=== PATIENT | female | born 1990 | race Hispanic/Latino ===

== ENCOUNTER 2018-04-16 14:43 | Emergency (ER) | payer BC ==
[~2018-04-16] VITALS: Ht 149.9 cm; Wt 84.8 kg
[2018-04-16 15:23] LABS: BASOPHILS % 0.3 % (0.0-1.0); EOSINOPHILS # (AUTO) 0.1 (0.0-0.4); EOSINOPHILS % 0.7 % (0.0-6.0); HEMATOCRIT 37.9 % (34.2-44.1); HEMOGLOBIN 12.7 g/dL (12.0-16.0); LYMPHOCYTES # (AUTO) 3.1 (1.0-3.2); LYMPHOCYTES % 26.7 % (18.0-39.1); MEAN CORPUSCULAR HEMOGLOBIN 28.8 pg (28-32); MEAN CORPUSCULAR HGB CONC 33.5 g/dL (31-35); MEAN CORPUSCULAR VOLUME 85.9 fL (81-99); MONOCYTES # (AUTO) 0.4 (0.2-0.8); MONOCYTES % 3.2 % (4.4-11.3); NEUTROPHILS # (AUTO) 7.9 (2.1-6.9); NEUTROPHILS % 68.8 % (38.7-80.0); PLATELET COUNT 370 x10e3/uL (140-360); RED BLOOD COUNT 4.41 x10e6/uL (3.6-5.1); RED CELL DISTRIBUTION WIDTH 12.9 % (11.7-14.4)
[2018-04-16 15:32] LABS: BILIRUBIN,URINE NEGATIVE (NEGATIVE); CLARITY,URINE CLOUDY (CLEAR); COLOR,URINE RED (YELLOW); KETONES,URINE NEGATIVE (NEGATIVE); LEUKOCYTE ESTERASE ,URINE NEGATIVE (NEGATIVE); NITRITE,URINE NEGATIVE (NEGATIVE); PROTEIN,URINE DIPSTICK 1+ (NEGATIVE); URINE UROBILINOGEN 0.2 mg/dL (0.2 - 1)
[2018-04-16 15:33] LABS: PREGNANCY TEST, URINE NEGATIVE (NEGATIVE)
[2018-04-16 15:42] LABS: RBC,URINE >50 /HPF (0-5)
[2018-04-16 15:47] LABS: ALANINE AMINOTRANSFERASE 19 IU/L (0-55); ALBUMIN 4.1 g/dL (3.5-5.0); ALBUMIN/GLOBULIN RATIO 1.6 (0.8-2.0); ALKALINE PHOSPHATASE 68 IU/L (40-150); ANION GAP 14.4 mmol/L (8-16); BLOOD UREA NITROGEN 7 mg/dL (7-26); BUN/CREATININE RATIO 9 (6-25); CALCIUM 9.9 mg/dL (8.4-10.2); CARBON DIOXIDE 26 mmol/L (22-29); CHLORIDE 102 mmol/L (98-107); EST GLOMERULAR FILTRATION RATE > 60 ML/MIN (60-); GLUCOSE 116 mg/dL (74-118); POTASSIUM 3.4 mmol/L (3.5-5.1); SODIUM 139 mmol/L (136-145)
[2018-04-16 15:52] LABS: HCG,QUANTITATIVE 5.77 mIU/mL (0-10)
--- NOTE | 2018-04-16 17:24 | Diagnostic Imaging Report ---
Exam: Pelvic ultrasound. History: Reportedly 5 weeks, 5 days per patient; vaginal bleeding x1 day. Negative beta-hCG. Comparison: None. Findings: Transabdominal and endovaginal sonographic evaluation of the pelvis. The uterus is 5.8 x 2.2 x 3.0 cm. Endometrial stripe measures 0.3 cm. No gestational sac or pole is identified. Scattered anechoic myometrial cysts. There are multiple nabothian cysts. The right ovary measures 1.4 x 0.9 x 1.2 cm and the left ovary measures 0.9 x 1.2 x 0.7 cm. Vascular flow is demonstrated in bilateral ovaries. No free fluid. Impression: No sonographic evidence of intrauterine (Per EMR, patient has a negative beta HCG). Signed by: Dr. Juan Diego Moore MD on 04/16/2018 5:20 PM
[2018-04-16 18:08] VITALS: BP 139/94
== END 2018-04-16 18:10 | disposition home or self-care (01) ==
LOC: ER 14:43
DX: N94.4 Primary dysmenorrhea (principal); R10.30 Lower abdominal pain, unspecified; F41.9 Anxiety disorder, unspecified; F32.9 Major depressive disorder, single episode, unspecified
CPT/HCPCS: 36415; 76830; 80053; 81001; 81025; 84702; 85025; 86900; 87086; 87186; 99283